=== PATIENT | female | born 2000 | race African-American/Black ===

== ENCOUNTER 2022-07-21 06:38 | Emergency (ER) | payer OTHER ==
[~2022-07-21] VITALS: Ht 172.7 cm; Wt 100.0 kg
[~2022-07-21 06:38] MED LIST: NORPTMEDS CO
[2022-07-21 07:13] LABS: Basophils # (auto) 0.1 10 ^3/uL (0-0.2); Eosinophils # (auto) 0.1 10 ^3/uL (0-0.8); Monocytes # (auto) 0.5 10 ^3/uL (0-1.3); Neutrophils # (auto) 4.2 10 ^3/uL (1.6-8.6); Nucleated Red Blood Cells % 0.1 %
[2022-07-21 07:16] LABS: Basophils % (auto) 0.7 % (0.0-2.0); Eosinophils % (auto) 1.4 % (0.0-7.0); Hematocrit 40.1 % (36.0-46.0); Lymphocytes # (auto) 2.4 10 ^3/uL (0.4-5.4); Lymphocytes % (auto) 32.4 % (10.0-50.0); Mean Corpuscular Hemoglobin 23.9 pg (28.0-32.0); Mean Corpuscular Hgb Conc. 32.5 g/dL (32.0-36.0); Mean Corpuscular Volume 73.5 fL (80.0-100.0); Monocytes % (auto) 7.5 % (0.0-12.0); Red Blood Cells 5.46 10^6/uL (4.0-5.20); Red Cell Distribution Width 15.6 % (11.8-14.3); White Blood Cell 7.3 10^3/uL (4.4-10.8)
[2022-07-21 07:45] LABS: Albumin 4.1 g/dL (3.4-5.0); Calcium 9.2 mg/dL (8.5-10.1); Potassium 3.9 mmol/L (3.5-5.1)
[2022-07-21 07:48] LABS: BUN/Creatinine Ratio 14.8; Bilirubin, Total 0.6 mg/dL (0.2-1.0)
[2022-07-21 07:49] VITALS: BP 130/81
[2022-07-21] MEDS ORDERED: DOCUSATE SOD 100 MG CAP PO ONE (11:00)
== END 2022-07-21 11:11 | disposition home or self-care (01) ==
LOC: ER 06:38
DX: K59.00 Constipation, unspecified (principal)
CPT/HCPCS: 36415; 74176; 80053; 83690; 84702; 85025

== ENCOUNTER → 2025-01-08 | Outpatient (CLI) | payer BC, OTHER ==
[2025-01-08 12:14] LABS: Basophils # (auto) 0.1 10 ^3/uL (0-0.2); Lymphocytes # (auto) 2.9 10 ^3/uL (0.4-5.4); Monocytes # (auto) 0.5 10 ^3/uL (0-1.3); Neutrophils # (auto) 5.5 10 ^3/uL (1.6-8.6); Red Cell Distribution Width 14.7 % (11.8-14.3)
[2025-01-08 12:16] LABS: Basophils % (auto) 0.6 % (0.0-2.0); Eosinophils # (auto) 0.1 10 ^3/uL (0-0.8); Eosinophils % (auto) 0.6 % (0.0-7.0); Hematocrit 44.4 % (36.0-46.0); Lymphocytes % (auto) 32.2 % (10.0-50.0); Mean Corpuscular Hemoglobin 24.3 pg (28.0-32.0); Mean Corpuscular Hgb Conc. 31.5 g/dL (32.0-36.0); Mean Corpuscular Volume 77.2 fL (80.0-100.0); Monocytes % (auto) 5.8 % (0.0-12.0); Neutrophils % (auto) 60.8 % (37.0-80.0); Platelet Count (auto) 414 10^3/uL (140-450); Red Blood Cells 5.76 10^6/uL (4.0-5.20); White Blood Cell 9.1 10^3/uL (4.4-10.8)
[2025-01-08 12:49] LABS: Triglycerides 137 mg/dL (< 150)
[2025-01-08 12:50] LABS: LDL Cholesterol 92 mg/dL (< 100)
[2025-01-08 12:51] LABS: Cholesterol 154 mg/dL (< 200); HDL Cholesterol 43 mg/dL (40-59)
[2025-01-08 13:06] LABS: Amphetamine Screen, Urine Neg (NEGATIVE); Barbiturate Scree,Urine Neg (NEGATIVE); Benzodiazephine Screen, Urine Neg (NEGATIVE); Cannabinoid Screen, Urine Neg (NEGATIVE); Cocaine Screen, Urine Neg (NEGATIVE); Opiate Scree,Urine Neg (NEGATIVE); Phencyclidine Screen, Urine Neg (NEGATIVE)
[2025-01-08 13:29] LABS: Hepatitis B Core Total AB Negative (Negative)
[2025-01-08 13:41] LABS: Hepatitis A Total Antibody Negative (Negative); Hepatitis B Surface Antibody Negative (Negative); Hepatitis B Surface Antigen Negative (Negative); Hepatitis C Antibody Negative (Negative)
[2025-01-09 13:07] LABS: Chlamydia Trachomatis, NAA Negative (Negative); Neisseria gonorrhoeae, NAA Negative (Negative)
== END | disposition home or self-care (01) ==
LOC: LAB 11:43
PROVIDERS: ATTEND Licensed Practical Nurse
DX: Z13.6 Encounter for screening for cardiovascular disorders (principal); Z13.220 Encounter for screening for lipoid disorders; Z11.3 Encounter for screening for infections with a predominantly sexual mode of transmission; Z13.29 Encounter for screening for other suspected endocrine disorder; E55.9 Vitamin D deficiency, unspecified; Z00.00 Encounter for general adult medical examination without abnormal findings
CPT/HCPCS: 36415; 80061; 80307; 82043; 82306; 83036; 84443; 85025; 86703; 86704; 86706; 86708; 86780; 86803; 87340

== ENCOUNTER 2025-05-21 08:50 | Outpatient (CLI) | payer BC, OTHER ==
[2025-05-21 10:17] LABS: Hematocrit 43.4 % (36.0-46.0); Hemoglobin 13.7 g/dL (12.2-16.2); Mean Corpuscular Hemoglobin 24.1 pg (28.0-32.0); Mean Corpuscular Volume 76.0 fL (80.0-100.0); Nucleated Red Blood Cells % 0.0 %
[2025-05-21 10:41] LABS: Alanine Aminotransferase 13 U/L (7-40); Alkaline Phosphatase 50 U/L (46-116); Anion Gap 8 (5-15); BUN/Creatinine Ratio 8.9 (10.0-20.0); Calcium 9.9 mg/dL (8.7-10.4); Carbon Dioxide 26 mmol/L (20-31); Chloride 104 mmol/L (98-107); Cholesterol 140 mg/dL (< 200); Glucose 91 mg/dL (74-106); Potassium 4.1 mmol/L (3.5-5.1); Sodium 138 mmol/L (136-145); Total Protein 7.9 g/dL (5.7-8.2)
[2025-05-21 10:42] LABS: Bilirubin, Total 0.5 mg/dL (0.2-1.0)
[2025-05-21 10:44] LABS: Albumin 4.9 g/dL (3.2-4.8); Blood Urea Nitrogen 8 mg/dL (9-23); HDL Cholesterol 38 mg/dL (40-59); Triglycerides 213 mg/dL (< 150)
== END 2025-05-21 17:00 | disposition home or self-care (01) ==
LOC: LAB 08:50
PROVIDERS: ATTEND Licensed Practical Nurse
DX: I10 Essential (primary) hypertension (principal); E55.9 Vitamin D deficiency, unspecified
CPT/HCPCS: 36415; 80053; 80061; 82043; 82306; 85025